=== PATIENT | male | born 1995 | race Caucasian/White ===

== ENCOUNTER 2016-12-04 14:58 | Inpatient (IN) | payer BC, OTHER ==
[~2016-12-04] VITALS: Ht 177.8 cm; Wt 70.3 kg
--- NOTE | ~2016-12-04 | HC ---
[facility] [address] [address] CONSULTATION Name: MIKEY GARCIA Room #: 447-P ADM IN M.R.#: [id number] Admission: 12/04/16 Attend Phys: Dom Marr MD Discharge: Date of : 89 Report #: [id number] THIS REPORT FOR: //name// CC: SAMINA physician/PCP Dom Marr DATE OF SERVICE: 12/05/2016 REFERRING PROVIDER: Dr. Dom Marr. REASON FOR CONSULTATION: Exacerbation of asthma. CHIEF COMPLAINT: Shortness of breath. HISTORY OF PRESENT ILLNESS: Our group was asked to see the patient while hospitalized at [facility], a pleasant 21-year-old male with longstanding history of asthma, he states since age 1. This is complicated by osteoporosis and chronic pain associated with chronic steroid use. He also notes other pulmonary history is significant for pectus excavatum. Asthma has been difficult to control, is typically on Advair 500/50 twice daily in addition to nebulized treatments. Has nocturnal awakening almost every night despite aggressive therapy. He is on steroid tapers frequently, sometimes requiring chronic steroid use. Has been hospitalized he states 4 times in the last year. Recently moved to the [facility] from [place], [place] for variety of reasons that were social; however, over the last several days he has been around friends who had been having what sounds like a lower respiratory infection. He had some increased cough, congestion, and wheezing and not checked peak flows at home, was not responding to therapy at home, presented to the emergency department, was found to have significant wheezing and difficulty with air movement. Subsequently, he has been on albuterol treatments overnight, systemic steroids as well as antibiotics. Chest radiograph was clear. Currently, he has no significant sputum production at this time. No fevers, chills or sweats. Denies exposures to any animals . Currently disabled, does have significant allergies to variety of agents. Has not been tried on Xolair, Nucala or has undergone bronchial thermoplasty for his asthma. Of note, he had been followed by an rotary veneer machine operator for a while until his passing a few years ago. ALLERGIES: Include EGG WHITES, PEANUTS, ASPIRIN, IBUPROFEN, TRAMADOL. PAST MEDICAL HISTORY: 1. Severe persistent asthma. 2. History of nasal polyps. 3. Osteoporosis. OUTPATIENT MEDICATIONS: 1. Albuterol p.r.n. [address] [address] CONSULTATION Name: MIKEY GARCIA Room #: 447-P [facility] IN ..#: [id number] Admission: 12/04/16 Attend Phys: Dom Marr MD Discharge: Date of : 89 Report #: [id number] 2. Advair 500/50 twice daily. 3. Singulair 10 mg daily. 4. Prednisone. SOCIAL HISTORY: The patient is an ex-smoker, quitting a few weeks ago. No alcohol consumption, previously been a marijuana smoker, is now smoke free. Currently disabled. He is with one child. FAMILY HISTORY: Significant for asthma in his uncles and there is a strong family history of coronary artery disease in their 50s including his father. REVIEW OF SYSTEMS: Except as described in HPI, a 12-point review of systems is normal except for history of eczema. PHYSICAL EXAMINATION: VITAL SIGNS: Afebrile, pulse 60s-70s, respiratory rate 18-20, blood pressure 106/61, oxygen saturation 91% on room air. GENERAL: This is a pleasant young male, in no distress. ENT: Clear oropharynx. NECK: Supple, no lymphadenopathy. LUNGS: Diminished, prolonged expiratory phase, diffuse wheeze is noted throughout. CARDIOVASCULAR: Heart was regular. No murmurs or gallops. ABDOMEN: Soft, nontender, nondistended. EXTREMITIES: Without edema or arthritis. INTEGUMENT: Revealed some eczema and multiple tattoos noted throughout. LABORATORY DATA: Chest x-ray in the emergency department did reveal some hyperinflation, but otherwise clear lung franks. No cardiopulmonary disease noted. CBC was normal. No elevated eosinophil count. Chemistry profile normal. No arterial blood gases performed. IMPRESSION: Severe persistent asthma with acute exacerbation. The patient has suboptimal control; however, given the severity of his disease and responsiveness to steroids, he would be a good potentially for Xolair or Nucala. We will also consider bronchial thermoplasty as a potential treatment but need more records from his previous spd manager to further evaluate. We would also check alpha 1 antitrypsin disease. Would consider allergy evaluation at some point as an outpatient. In the meantime, would continue with systemic steroids with taper, frequent bronchodilators, add inhaled steroids to his current regimen inhouse, check IgE level. [address] [address] CONSULTATION Name: MIKEY GARCIA Room #: 447-P [facility] IN M.R.#: [id number] Admission: 12/04/16 Attend Phys: Dom Marr MD Discharge: Date of : 89 Report #: [id number] Thank you for requesting our suggestions. <ELECTRONICALLY SIGNED> By: Leonid Connell MD 12/07/16 0904 [id number] [id number] Leonid Connell MD /nt
--- NOTE | ~2016-12-04 | H ---
[facility] [place] [address] [address] [place] [address] HISTORY AND PHYSICAL Name: MIKEY GARCIA Room #: 447-P [facility] IN M.R.#: [id number] Admission: 12/04/16 Attend Phys: Dom Marr MD Discharge: 12/09/16 Date of : 89 Report #: [id number] THIS REPORT FOR: //name// CC: SAMINA physician/PCP Dom Marr DATE OF SERVICE: 12/04/2016 DATE OF SERVICE: 12/04/2016 REASON FOR ADMISSION: Asthma exacerbation. CHIEF COMPLAINT: Shortness of breath and wheezing. HISTORY OF PRESENT ILLNESS: The patient is a 21-year-old man with lifelong asthma. He recently moved here from [place], and he has been out of medications. He is on Singulair and Advair, as well as rescue albuterol inhaler. The patient states that his wheezing and shortness of breath got worse 4 days ago. His few friends have upper respiratory infection. The patient developed cough, but no sputum production, as well as chest congestion followed by wheezing about 4 days ago. He presents to the Emergency Room with his symptoms. His evaluation has been unremarkable, and pulse oximetry showed oxygen saturation 96-97% on 2 liters of oxygen by nasal cannula. After breathing treatments, the patient feels somewhat better, but he still has significant wheezing and he is minimally short of breath. He denies chest pains, palpitations, or other symptoms. He has no fever or chills. PAST MEDICAL HISTORY: 1. Asthma since childhood as above. 2. Eczema. 3. Osteoporosis, steroid induced. 4. Questionable rheumatoid arthritis. 5. Chronic pain, not otherwise specified. CURRENT MEDICATIONS: Rescue albuterol inhaler and prednisone taper that patient was provided at the urgent care clinic. FAMILY HISTORY: History of asthma in uncles. SOCIAL HISTORY: The patient is on disability. He quit smoking cigarettes 2 weeks ago. He does not drink alcohol. REVIEW OF SYSTEMS: As above in HPI section, all others negative. PHYSICAL EXAMINATION: [facility] [address] [place] [address] HISTORY AND PHYSICAL Name: MIKEY GARCIA Room #: 447-P [facility] IN M.R.#: [id number] Admission: 12/04/16 Attend Phys: Dom Marr MD Discharge: 12/09/16 Date of : 89 Report #: [id number] GENERAL: The patient is young, healthy looking man, who is in no apparent distress. VITAL SIGNS: Blood pressure is 117/75, heart rate is 63, respiration is 18 per minute, temperature is 97.0. HEENT: Pupils are equal. Eye movements are normal. Sclerae are anicteric. Oral mucosa is moist. Ear: Deferred. NECK: Supple. The patient has no thyromegaly. He has no JVD or carotid bruits. RESPIRATORY: Chest moves symmetrically with breathing. The patient has diffuse expiratory wheezes bilaterally. He has no crackles. CARDIOVASCULAR: Heart rate is regular. S1 and S2 is hard to auscultate due to wheezing. GASTROINTESTINAL: Soft, nondistended, and nontender. Bowel sounds are present. Hepatomegaly or splenomegaly is not appreciated. MUSCULOSKELETAL: The patient has no edema, cyanosis or clubbing. Range of motion is normal. SKIN: The patient has dry skin with lesions consistent with eczema. LABORATORY DATA: Basic metabolic profile is normal. CBC with differential is also normal. ASSESSMENT AND PLAN: 1. Asthma exacerbation. The patient will be treated with IV steroids, bronchodilators, oxygen, and he will be resumed on Singulair. Given patient's recent upper respiratory infection, we will treat the patient with antibiotics, since bacterial etiology cannot be ruled out. X-ray is negative for acute infiltrates. We will ask pulmonary team to evaluate patient. Consultation is very much appreciated. 2. Lifelong history of asthma. I strongly recommended the patient to establish care with blind teacher, and follow recommendations closely. 3. Tobacco abuse. The patient quit smoking about 2 weeks ago. 4. Steroid-induced osteoporosis. 5. Chronic pain syndrome, not otherwise specified. The patient was recommended in the past to see a circular knitter, before he moves to this area. Follow up will be provided. upon the discharge from the hospital. <ELECTRONICALLY SIGNED> By: Dom Marr MD 12/09/162031 00 48 Dom Marr MD /nt
[~2016-12-04 14:58] MED LIST: FLOVENT HFA 2220 MCG INH; PREDNISONE 20 M20 MG PO; VENTOLIN HFA 1818 GM INH
[2016-12-04 15:01] VITALS: BP 124/93
[2016-12-04 15:51] LABS: HEMATOCRIT 48.6 % (42.0-52.0); HEMOGLOBIN 16.8 gm/dL (14.0-18.0); MCH 30.6 pg (26.0-34.0); MCHC 34.6 % (28.0-37.0); MCV 88.4 fL (80.0-100.0); PLATELET COUNT 241 thou/uL (150-400); RDW 13.2 % (10.5-14.5); WBC 9.4 thou/uL (4.0-11.0)
[2016-12-04 15:57] LABS: MANUAL DIFF YES
[2016-12-04 16:03] LABS: CALCIUM 9.4 mg/dL (8.5-10.1); CREATININE 0.9 mg/dL (0.6-1.3); POTASSIUM 4.2 mmol/L (3.5-5.1)
[2016-12-04 16:25] LABS: ABSOLUTE NEUTROPHILS 8.3 thou/uL (1.4-8.2); TOTAL CELL COUNT 100
[2016-12-04 18:34] VITALS: BP 120/74
[2016-12-04 19:00] VITALS: BP 117/75
[2016-12-04 22:20] VITALS: BP 127/76
[2016-12-05 06:18] VITALS: BP 120/69
[2016-12-05] MEDS ORDERED: OXYCODONE HCL20 M1 PO (09:41)
[2016-12-05 09:47] VITALS: BP 101/63
[2016-12-05 12:43] VITALS: BP 106/61
[2016-12-05 16:42] VITALS: BP 116/70
[2016-12-05 20:59] VITALS: BP 122/54
[2016-12-06 03:57] VITALS: BP 120/69
[2016-12-06 09:28] VITALS: BP 126/77
[2016-12-06 13:51] VITALS: BP 130/74
[2016-12-06 17:08] VITALS: BP 122/78
[2016-12-06 20:50] VITALS: BP 124/50
[2016-12-07 03:30] VITALS: BP 120/87
[2016-12-07 06:38] LABS: HEMATOCRIT 44.8 % (42.0-52.0); MCH 30.3 pg (26.0-34.0); MCHC 32.8 % (28.0-37.0); MCV 92.3 fL (80.0-100.0); PLATELET COUNT 211 thou/uL (150-400); RBC 4.85 mil/uL (4.50-6.00); RDW 13.3 % (10.5-14.5); WBC 13.5 thou/uL (4.0-11.0)
[2016-12-07 06:41] LABS: HEMOGLOBIN 14.7 gm/dL (14.0-18.0); MANUAL DIFF YES
[2016-12-07 06:55] LABS: POTASSIUM 4.3 mmol/L (3.5-5.1)
[2016-12-07 08:00] VITALS: BP 101/75
[2016-12-07 08:19] VITALS: BP 101/75
[2016-12-07 08:27] LABS: ABSOLUTE NEUTROPHILS 10.8 thou/uL (1.4-8.2); ANISOCYTOSIS 1+; ATYPICAL LYMPHS 2 %; TOTAL CELL COUNT 100
[2016-12-07 12:00] VITALS: BP 104/51
[2016-12-07 16:00] VITALS: BP 130/45
[2016-12-07 20:00] VITALS: BP 132/69
[2016-12-08 04:40] VITALS: BP 126/85
[2016-12-08 08:34] VITALS: BP 146/81
[2016-12-08 12:35] VITALS: BP 152/75
[2016-12-08] MEDS ORDERED: SINGULAIR 10 MG10 M1 PO (13:51)
[2016-12-08] MEDS ORDERED: LEVAQUIN 500 M500 M9 PO (13:51)
[2016-12-08] MEDS ORDERED: PREDNISONE 10 M10 MG PO (13:51)
[2016-12-08] MEDS ORDERED: DUONEB 2.5-0.5 M3 ML INH (13:51)
[2016-12-08] MEDS ORDERED: NEBULIZER MISCELL (13:51)
[2016-12-08] MEDS ORDERED: PULMICORT0.5 MG/22 INH (13:51)
[2016-12-08] MEDS ORDERED: OXYCODONE HCL20 M1 PO (13:51)
[2016-12-08 16:29] VITALS: BP 149/72
[2016-12-08 20:11] VITALS: BP 135/61
[2016-12-09 03:47] VITALS: BP 126/67
[2016-12-09 08:00] VITALS: BP 144/85
[2016-12-09 12:15] VITALS: BP 144/85
[2016-12-09] MEDS ORDERED: PREDNISONE 10 M10 MG PO (12:35)
== END 2016-12-09 12:50 | disposition home or self-care (01) | DRG 202 ==
LOC: ER 14:58 → 4S 18:02 → EROBS 18:02 → 4S 19:08
PROVIDERS: Internal Medicine Endocrinology, Diabetes & Metabolism; Physician Assistant
DX: J45.901 Unspecified asthma with (acute) exacerbation (principal); F11.20 Opioid dependence, uncomplicated; T38.0X5A Adverse effect of glucocorticoids and synthetic analogues, initial encounter; L30.9 Dermatitis, unspecified; F17.210 Nicotine dependence, cigarettes, uncomplicated; M81.8 Other osteoporosis without current pathological fracture; G89.4 Chronic pain syndrome; Y92.89 Other specified places as the place of occurrence of the external cause; Z88.6 Allergy status to analgesic agent; Z91.012 Allergy to eggs; Z91.010 Allergy to peanuts; Z79.51 Long term (current) use of inhaled steroids; Z79.52 Long term (current) use of systemic steroids; Z79.899 Other long term (current) drug therapy
CPT/HCPCS: 10100; 10102